=== PATIENT | female | born 1955 | race Caucasian/White ===

== ENCOUNTER → 2016-09-24 | Outpatient (CLI) | payer BC, OTHER ==
[~2016-09-24] MED LIST: BLOO-1104 PERC; CELE200C PO; HYDR200T5 PO; METO-93 PO; OLME20TA PO; SULF500T36 PO
== END | disposition home or self-care (01) ==
LOC: CFH 14:07
PROVIDERS: ATTEND Internal Medicine
DX: Z12.31 Encounter for screening mammogram for malignant neoplasm of breast (principal)
CPT/HCPCS: G0202

== ENCOUNTER → 2018-02-18 | Outpatient (CLI) | payer BC, OTHER ==
[~2018-02-18] MED LIST changes: -OLME20TA PO; +OLME20TA17 PO
== END | disposition home or self-care (01) ==
LOC: CFH 10:26
PROVIDERS: ATTEND Internal Medicine
DX: Z12.31 Encounter for screening mammogram for malignant neoplasm of breast (principal); Z80.3 Family history of malignant neoplasm of breast
CPT/HCPCS: 77067

== ENCOUNTER → 2018-08-15 | Outpatient (CLI) | payer BC, OTHER | END | disposition home or self-care (01) | LOC: CFH 08:48 | PROVIDERS: ATTEND Specialist | DX: R74.0 Nonspecific elevation of levels of transaminase and lactic acid dehydrogenase [LDH] (principal); M05.79 Rheumatoid arthritis with rheumatoid factor of multiple sites without organ or systems involvement | CPT/HCPCS: 76705 ==

== ENCOUNTER 2018-11-20 16:43 | Emergency (ER) | payer BC, OTHER ==
[~2018-11-20] VITALS: Ht 154.9 cm; Wt 73.4 kg
[2018-11-20 17:35] LABS: BASOPHILS # (AUTO) 0.03 x10^3/uL (0-0.1); BASOPHILS % (AUTO) 1 % (0-1); EOSINOPHILS # (AUTO) 0.05 x10^3/uL (0-0.4); EOSINOPHILS % (AUTO) 1 % (1-7); LYMPHOCYTES # (AUTO) 1.36 x10^3/uL (1-3.4); LYMPHOCYTES % (AUTO) 30 % (22-44); MD NO; MEAN CORPUSCULAR HGB CONC 34.7 g/dL (32.4-35.8); MEAN PLATELET VOLUME 6.6 fL (7.4-10.4); MONOCYTES # (AUTO) 0.48 x10^3/uL (0.2-0.8); MONOCYTES % (AUTO) 11 % (2-9); NEUTROPHILS # (AUTO) 2.65 x10^3/uL (1.8-6.8); NEUTROPHILS % (AUTO) 58 % (42-75); PLATELET COUNT 337 x10^3/uL (130-400); RED BLOOD COUNT 3.58 x10^6/uL (3.82-5.3); RED CELL DISTRIBUTION WIDTH 12.7 % (9.6-15.2)
[2018-11-20 17:47] LABS: ALANINE AMINOTRANSFERASE 32 U/L (12-78); ALBUMIN 3.6 g/dL (3.4-5.0); ANION GAP 8 mmol/L (5-15); CALCIUM 8.9 mg/dL (8.5-10.1); CHLORIDE 94 mmol/L (98-107); CREATININE 0.69 mg/dL (0.55-1.02)
[2018-11-20 17:49] LABS: ALKALINE PHOSPHATASE 99 U/L (45-117); BILIRUBIN,TOTAL 0.4 mg/dL (0.2-1.0); TOTAL PROTEIN 7.3 g/dL (6.4-8.2)
--- NOTE | 2018-11-20 17:58 | NUR ---
pt upright on gurney awake & comfortable, responds approp to staff, NAD, comfort measures provided, at BS, call light within reach.
[2018-11-20] MEDS ORDERED: SODIUM CHLORIDE FLUSH 10ML SYR IVF ONE (18:00)
--- NOTE | 2018-11-20 18:05 | NUR ---
pt to CT
[2018-11-20 18:13] LABS: MICROSCOPIC AUTO
[2018-11-20 18:16] LABS: CULTURE INDICATED? NO
[2018-11-20] MEDS ORDERED: OMNIPAQUE 350 MG/ML, 100ML BOTTLE ONE (18:17)
--- NOTE | 2018-11-20 18:56 | NUR ---
report given to Chanelle
--- NOTE | 2018-11-20 19:30 | NUR ---
Pt ambualte to bathroom and back, states that her pain is resolved at this time
[2018-11-20 19:58] VITALS: BP 109/68
== END 2018-11-20 19:59 | disposition home or self-care (01) ==
LOC: ED 17:57
DX: R10.12 Left upper quadrant pain (principal); R10.32 Left lower quadrant pain; I25.10 Atherosclerotic heart disease of native coronary artery without angina pectoris; I10 Essential (primary) hypertension; Z90.49 Acquired absence of other specified parts of digestive tract
CPT/HCPCS: 36415; 74177; 80053; 81001; 83690; 85025; 99284; Q9967

== ENCOUNTER → 2020-01-25 | Outpatient (CLI) | payer BC, OTHER | END | disposition home or self-care (01) | LOC: CVU 10:42 | PROVIDERS: ATTEND Internal Medicine Cardiovascular Disease | DX: Z13.6 Encounter for screening for cardiovascular disorders (principal); I35.1 Nonrheumatic aortic (valve) insufficiency; I25.10 Atherosclerotic heart disease of native coronary artery without angina pectoris; E78.2 Mixed hyperlipidemia | CPT/HCPCS: 75571; 93306; 93356 ==

== ENCOUNTER → 2020-05-10 | Outpatient (CLI) | payer BC, OTHER | END | disposition home or self-care (01) | LOC: CFH 13:08 | PROVIDERS: ATTEND Registered Nurse | DX: R92.2 Inconclusive mammogram (principal); N64.4 Mastodynia | CPT/HCPCS: 76642; 77066; G0279 ==